=== PATIENT | female | born 1985 | race Hispanic/Latino ===

== ENCOUNTER 2024-11-13 17:10 | Emergency (ER) | payer SELFPAY ==
[~2024-11-13] VITALS: Ht 157.5 cm; Wt 61.2 kg
[2024-11-13] MEDS ORDERED: Clindamycin INJ 150 MG/ML 600 MG Vial IM ONE (17:45)
[2024-11-13 18:05] LABS: BASOPHILS % 0.2 % (0.0-1.0); HEMOGLOBIN 12.3 g/dL (12.0-16.0); LYMPHOCYTES # (AUTO) 0.8 (1.0-3.2); LYMPHOCYTES % 5.6 % (18.0-39.1); MEAN CORPUSCULAR HEMOGLOBIN 28.8 pg (28-32); MEAN CORPUSCULAR HGB CONC 35.1 g/dL (31-35); MONOCYTES # (AUTO) 0.8 (0.2-0.8); MONOCYTES % 5.3 % (4.4-11.3); NEUTROPHILS # (AUTO) 12.9 (2.1-6.9); NEUTROPHILS % 88.5 % (38.7-80.0); PLATELET COUNT 235 x10e3/uL (140-360); RED BLOOD COUNT 4.27 x10e6/uL (3.6-5.1); RED CELL DISTRIBUTION WIDTH 12.8 % (11.7-14.4); WHITE BLOOD COUNT 14.57 x10e3/uL (4.8-10.8)
[2024-11-13] MEDS ORDERED: CLINDAMYCIN 600MG / 50ML 50 ML IV ONE (18:09)
[2024-11-13 18:17] LABS: INR 1.06; PROTHROMBIN TIME 14.4 seconds (11.9-14.5)
[2024-11-13 18:18] LABS: PARTIAL THROMBOPLASTIN TIME 31.3 seconds (23.8-35.5)
[2024-11-13] MEDS: ACETAMINOPHEN 325 MG TAB PO ONE (18:19)
[2024-11-13] MEDS: SODIUM CHLORIDE 0.9% 1000ML 1,000 ML IV ONE (18:19)
[2024-11-13 18:20] LABS: ALANINE AMINOTRANSFERASE 87 IU/L (0-55); ALBUMIN 2.9 g/dL (3.5-5.0); ALBUMIN/GLOBULIN RATIO 0.7 (0.8-2.0); ALKALINE PHOSPHATASE 145 IU/L (40-150); ANION GAP 18.7 mmol/L (8-16); BILIRUBIN,TOTAL 0.7 mg/dL (0.2-1.2); BLOOD UREA NITROGEN < 5 mg/dL (7-26); CALCIUM 8.7 mg/dL (8.4-10.2); CARBON DIOXIDE 18 mmol/L (22-29); CHLORIDE 95 mmol/L (98-107); CREATININE, SERUM 0.73 mg/dL (0.57-1.11); EST GLOMERULAR FILTRATION RATE 107 ML/MIN (>=60); POTASSIUM 3.7 mmol/L (3.5-5.1); SODIUM 128 mmol/L (136-145)
[2024-11-13 18:27] LABS: BUN/CREATININE RATIO 7 (6-25); GLUCOSE 426 mg/dL (74-118)
[2024-11-13 18:29] LABS: CORONAVIRUS COVID-19 AG NEGATIVE (NEGATIVE); INFLUENZA A AG NEGATIVE (NEGATIVE); INFLUENZA B AG NEGATIVE (NEGATIVE)
[2024-11-13] MEDS ORDERED: SODIUM CHLORIDE 0.9% 1000ML 1,000 ML ONE (18:35)
[2024-11-13 18:38] LABS: BILIRUBIN,URINE NEGATIVE (NEGATIVE); CLARITY,URINE SL CLOUDY (CLEAR); COLOR,URINE YELLOW (YELLOW); GLUCOSE, URINE 500 (NEGATIVE); KETONES,URINE TRACE (NEGATIVE); LEUKOCYTE ESTERASE ,URINE NEGATIVE (NEGATIVE); NITRITE,URINE POSITIVE (NEGATIVE); PH,URINE 6 (5 - 7); PROTEIN,URINE DIPSTICK 1+ (NEGATIVE); URINE UROBILINOGEN 1 mg/dL (0.2 - 1)
[2024-11-13] MEDS: INSULIN REGULAR, HUMAN 100 UNIT/1 ML SQ ONE (18:38)
[2024-11-13] MEDS: SODIUM CHLORIDE 0.9% 1000ML 1,840 ML IV SCH (18:39)
[2024-11-13 18:44] LABS: BACTERIA,URINE MANY /HPF; EPITHELIAL CELLS,URINE FEW /LPF; WBC,URINE (MAN) 21-50 /HPF (0-5)
[2024-11-13] MEDS ORDERED: IOPAMIDOL 370 MG/ML 100 ML INFUS..BTL INJ ONE (18:46)
[2024-11-13] MEDS: SODIUM CHLORIDE 0.9% 1000ML 1,000 ML IV SCH (20:23)
[2024-11-13 21:04] LABS: BLOOD UREA NITROGEN < 5 mg/dL (7-26); CARBON DIOXIDE 18 mmol/L (22-29); CHLORIDE 103 mmol/L (98-107); CREATININE, SERUM 0.58 mg/dL (0.57-1.11); EST GLOMERULAR FILTRATION RATE 118 ML/MIN (>=60); GLUCOSE 285 mg/dL (74-118); SODIUM 132 mmol/L (136-145)
[2024-11-13 21:05] LABS: BUN/CREATININE RATIO 9 (6-25)
[2024-11-13 21:06] LABS: CALCIUM 7.3 mg/dL (8.4-10.2)
[2024-11-13 22:12] VITALS: PULSE 115; RESP 16; TEMP 99.3; O2SAT 100
== END 2024-11-13 22:32 | disposition other institution (70) ==
LOC: ER 18:01
DX: R50.9 Fever, unspecified (principal); K04.7 Periapical abscess without sinus; R65.21 Severe sepsis with septic shock; N39.0 Urinary tract infection, site not specified; E11.65 Type 2 diabetes mellitus with hyperglycemia; R11.0 Nausea; J45.909 Unspecified asthma, uncomplicated; Z11.52 Encounter for screening for COVID-19
CPT/HCPCS: 36415; 70486; 71045; 80048; 80053; 81001; 81025; 83605; 85025; 85610; 85730; 87040; 87071; 87086; 87186; 87205; 87428; 93005; 99284; J0696; J7030; Q9967